=== PATIENT | female | born 1985 | race Caucasian/White ===

== ENCOUNTER 2023-12-18 10:04 | Emergency (ER) | payer OTHER ==
[~2023-12-18] VITALS: Ht 152.4 cm; Wt 114.0 kg
[~2023-12-18 10:04] MED LIST: BUSP30TA2 PO; CLON0.5T23 PO; DOXE150C PO; SERT-112 PO
[2023-12-18 10:12] VITALS: O2SAT 99
[2023-12-18] MEDS: LEVETIRACETAM 500MG PREMIX 100 ML IV ONE (10:36)
[2023-12-18 10:53] LABS: BASOPHILS % 0.7 % (0.0-2.0); EOSINOPHILS % 2.4 % (0.0-5.0); HEMATOCRIT. 39.2 % (36.0-48.0); LYMPHOCYTES % 21.7 % (20.0-50.0); MEAN CORPUSCULAR HEMOGLOBIN 29.5 pg (28.0-32.0); MEAN CORPUSCULAR HGB CONC 33.3 g/dL (31.0-37.0); MEAN CORPUSCULAR VOLUME 88.6 fL (81.0-99.0); MONOCYTES % 9.3 % (2.0-8.0); NEUTROPHILS % 65.9 % (40.0-76.0); PLATELET 226 x1000/uL (130-400); RED BLOOD CELL COUNT 4.42 mill/uL (4.2-5.4); RED CELL DISTRIBUTION WIDTH 12.9 % (11.6-14.6); WHITE BLOOD COUNT 4.7 x1000/uL (4.5-11.0)
[2023-12-18 11:05] LABS: CHLORIDE 108 mEq/L (98-107); POTASSIUM 4.1 mEq/L (3.5-5.1); SODIUM 141 mEq/L (136-145)
[2023-12-18 11:06] LABS: CALCIUM 9.4 mg/dL (8.7-10.4); CARBON DIOXIDE 23 mEq/L (21-32)
[2023-12-18 11:11] LABS: CREATININE 0.7 mg/dL (0.6-1.0); GLUCOSE 132 mg/dL (70-105); UREA NITROGEN BLOOD 16 mg/dL (9-23)
[2023-12-18] MEDS ORDERED: KEPP500 MT (12:37)
[2023-12-18 12:43] LABS: CLARITY URINE CLOUDY (CLEAR); COLOR URINE YELLOW (YELLOW); GLUCOSE URINE NEGATIVE (NEGATIVE); KETONES URINE NEGATIVE (NEGATIVE); LEUKOCYTE ESTERASE URINE 3+ (NEGATIVE); NITRITE URINE POSITIVE (NEGATIVE); OCCULT BLOOD URINE NEGATIVE (NEGATIVE); PROTEIN URINE TRACE (NEGATIVE); UROBILINOGEN URINE 0.2 E.U./dL (0.2-1.0)
[2023-12-18 12:48] VITALS: BP 125/86; PULSE 90; RESP 14; TEMP 97.5
[2023-12-18 12:57] LABS: BACTERIA URINE 4+; WBC URINE 25-50 /hpf (0-2); YEAST URINE NONE SEEN
[2023-12-18 12:58] LABS: SQUAMOUS EPITHELIAL CELL URINE RARE /lpf (RARE/1+)
== END 2023-12-18 12:59 | disposition home or self-care (01) ==
LOC: ER 10:04 → CANBEDREQ 12-19 02:38
DX: R56.9 Unspecified convulsions (principal); I10 Essential (primary) hypertension
CPT/HCPCS: 99283; 80048; 81003; 85025; 87086; 36415; J1953

== ENCOUNTER 2024-07-08 14:12 | Inpatient (IN) | payer BC, MEDICAID, OTHER ==
[~2024-07-08] VITALS: Ht 165.1 cm; Wt 114.3 kg
[~2024-07-08 14:12] MED LIST changes: +KEPP500 MT
[2024-07-08 14:15] VITALS: O2SAT 96
[2024-07-08] MEDS: LEVETIRACETAM 1000MG PREMIX 100 ML IV ONE (15:16)
[2024-07-08 16:17] LABS: HEMATOCRIT. 37.3 % (36.0-48.0); HEMOGLOBIN. 13.2 g/dL (12.0-16.0); MEAN CORPUSCULAR HEMOGLOBIN 30.4 pg (28.0-32.0); MEAN CORPUSCULAR HGB CONC 35.3 g/dL (31.0-37.0); MEAN CORPUSCULAR VOLUME 86.1 fL (81.0-99.0); PLATELET 159 x1000/uL (130-400); RED BLOOD CELL COUNT 4.33 mill/uL (4.2-5.4); RED CELL DISTRIBUTION WIDTH 12.9 % (11.6-14.6); WHITE BLOOD COUNT 7.3 x1000/uL (4.5-11.0)
[2024-07-08 16:21] LABS: DIFFERENTIAL COMMENT 1
[2024-07-08 16:36] LABS: CHLORIDE 99 mEq/L (98-107); SODIUM 135 mEq/L (136-145)
[2024-07-08 16:37] LABS: CALCIUM 9.4 mg/dL (8.7-10.4); CARBON DIOXIDE 26 mEq/L (21-32)
[2024-07-08 16:42] LABS: CREATININE 0.7 mg/dL (0.6-1.0); GLUCOSE 166 mg/dL (70-105); UREA NITROGEN BLOOD 9 mg/dL (9-23)
[2024-07-08 16:53] LABS: POTASSIUM 2.5 mEq/L (3.5-5.1)
[2024-07-08 17:53] LABS: PLATELET ESTIMATE NORMAL
[2024-07-08] MEDS: POTASSIUM CHLORIDE 20MEQ TABLET SR PO ONE (18:09)
[2024-07-08 20:00] VITALS: BP 146/74; PULSE 95; RESP 18; TEMP 37.11408; O2SAT 97
[2024-07-08] MEDS ORDERED: LORAZEPAM 2MG/ML INJ IV PRN (23:00)
[2024-07-08] MEDS: DOXEPIN HCL 25MG CAPSULE PO SCH (23:40)
[2024-07-08] MEDS: POTASSIUM CHLORIDE 20MEQ TABLET SR PO NR (23:42)
[2024-07-09] VITALS: BP 128/55; PULSE 93; RESP 18; TEMP 36.72516; O2SAT 98
[2024-07-09 00:12] LABS: BASOPHILS % 0.2 % (0.0-2.0); HEMATOCRIT. 39.1 % (36.0-48.0); HEMOGLOBIN. 13.5 g/dL (12.0-16.0); LYMPHOCYTES % 8.2 % (20.0-50.0); MEAN CORPUSCULAR HEMOGLOBIN 29.9 pg (28.0-32.0); MEAN CORPUSCULAR HGB CONC 34.4 g/dL (31.0-37.0); MEAN CORPUSCULAR VOLUME 86.9 fL (81.0-99.0); MEAN PLATELET VOLUME 9.9 fl (7.4-10.4); MONOCYTES % 11.6 % (2.0-8.0); PLATELET 165 x1000/uL (130-400); RED CELL DISTRIBUTION WIDTH 13.1 % (11.6-14.6); WHITE BLOOD COUNT 6.3 x1000/uL (4.5-11.0)
[2024-07-09 00:16] LABS: CALCIUM 9.6 mg/dL (8.7-10.4); CARBON DIOXIDE 28 mEq/L (21-32); CHLORIDE 100 mEq/L (98-107); SODIUM 138 mEq/L (136-145)
[2024-07-09 00:21] LABS: CREATININE 0.7 mg/dL (0.6-1.0); GLUCOSE 157 mg/dL (70-105); UREA NITROGEN BLOOD 10 mg/dL (9-23)
[2024-07-09 01:08] LABS: POTASSIUM 2.7 mEq/L (3.5-5.1)
[2024-07-09] MEDS: KCL 20MEQ/100ML PREMIX 100 ML IV SCH (01:35)
[2024-07-09 04:00] VITALS: BP 157/121; PULSE 92; RESP 16; TEMP 36.28068; O2SAT 100
[2024-07-09 08:00] VITALS: BP 127/93; PULSE 87; RESP 20; TEMP 37.05852; O2SAT 96
[2024-07-09] MEDS: LEVETIRACETAM 500MG TABLET PO SCH (08:56)
[2024-07-09] MEDS: CLONAZEPAM 0.5MG TABLET PO SCH (08:57)
[2024-07-09] MEDS: BUSPIRONE HCL 10MG TABLET PO SCH (08:57)
[2024-07-09] MEDS: SERTRALINE HCL 100MG TABLET PO SCH (08:57)
[2024-07-09] MEDS: POTASSIUM CHLORIDE 20MEQ TABLET SR PO NR (11:26)
[2024-07-09] MEDS: ACETAMINOPHEN 325MG TABLET PO PRN (11:27)
[2024-07-09 12:00] VITALS: BP 143/75; PULSE 99; RESP 18; TEMP 38.3364; O2SAT 96
[2024-07-09 14:13] LABS: CLARITY URINE CLEAR (CLEAR); COLOR URINE YELLOW (YELLOW); GLUCOSE URINE NEGATIVE (NEGATIVE); KETONES URINE NEGATIVE (NEGATIVE); LEUKOCYTE ESTERASE URINE 2+ (NEGATIVE); NITRITE URINE POSITIVE (NEGATIVE); OCCULT BLOOD URINE TRACE (NEGATIVE); PROTEIN URINE 1+ (NEGATIVE); SPECIFIC GRAVITY URINE 1.014 (1.005-1.030)
[2024-07-09] MEDS: ENOXAPARIN 30MG/0.3ML SYR SUBCUT SCH (14:17)
[2024-07-09 14:20] LABS: POTASSIUM 3.3 mEq/L (3.5-5.1)
[2024-07-09 14:40] LABS: SQUAMOUS EPITHELIAL CELL URINE 3+ /lpf (RARE/1+)
[2024-07-09 14:41] LABS: BACTERIA URINE 4+
[2024-07-09 14:45] LABS: RBC URINE 0-2 /hpf (0-2)
[2024-07-09] MEDS: CEFTRIAXONE 1GM/50ML 50 ML IV SCH (15:18)
[2024-07-09 16:00] VITALS: BP_SYST 114; BP_SYST 133; BP_DIAS 106; BP_DIAS 95; PULSE 80; PULSE 98; RESP 20; TEMP 36.3918; O2SAT 80; O2SAT 99
[2024-07-09 20:00] VITALS: BP 101/59; PULSE 95; RESP 18; TEMP 36.6696; O2SAT 96
[2024-07-10 00:15] VITALS: BP_SYST 132; BP_DIAS 77; BP_DIAS 97; PULSE 88; RESP 20; TEMP 36.16956; TEMP 36.1956; O2SAT 93
[2024-07-10 04:00] VITALS: BP 114/74; PULSE 81; RESP 19; TEMP 37.16964; O2SAT 94
[2024-07-10 08:00] VITALS: BP 137/89; PULSE 86; RESP 18; TEMP 37.00296; O2SAT 100
[2024-07-10 12:00] VITALS: BP 127/86; PULSE 98; RESP 20; TEMP 36.33624; O2SAT 100
[2024-07-10 13:35] LABS: CHLORIDE 99 mEq/L (98-107); POTASSIUM 3.3 mEq/L (3.5-5.1); SODIUM 134 mEq/L (136-145)
[2024-07-10 13:36] LABS: CALCIUM 9.3 mg/dL (8.7-10.4); CARBON DIOXIDE 23 mEq/L (21-32)
[2024-07-10 13:41] LABS: CREATININE 0.7 mg/dL (0.6-1.0); GLUCOSE 158 mg/dL (70-105); UREA NITROGEN BLOOD 13 mg/dL (9-23)
[2024-07-10 16:00] VITALS: BP 128/89; PULSE 91; RESP 18; TEMP 36.89184; O2SAT 97
[2024-07-10] MEDS: POTASSIUM CHLORIDE 20MEQ TABLET SR PO NR (17:46)
[2024-07-10 20:00] VITALS: BP 147/86; PULSE 98; RESP 20; TEMP 37.7808; O2SAT 94
[2024-07-11] VITALS: BP 117/81; PULSE 85; RESP 20; TEMP 37.39188; O2SAT 93
[2024-07-11 04:00] VITALS: BP 126/75; PULSE 92; RESP 20; TEMP 37.05852; O2SAT 95
[2024-07-11 08:00] VITALS: BP 111/82; PULSE 98; RESP 17; TEMP 36.3918; O2SAT 96
[2024-07-11 12:00] VITALS: BP 114/84; PULSE 98; RESP 18; TEMP 36.89184; O2SAT 96
[2024-07-11 16:00] VITALS: BP 119/71; PULSE 84; RESP 17; TEMP 37.28076; O2SAT 95
[2024-07-11 20:00] VITALS: BP 123/80; PULSE 107; RESP 18; TEMP 36.50292; O2SAT 95
[2024-07-12] VITALS: BP 110/64; PULSE 117; RESP 18; TEMP 36.61404; O2SAT 93
[2024-07-12 04:00] VITALS: BP 114/65; PULSE 109; RESP 20; TEMP 35.89176; O2SAT 94
[2024-07-12 08:00] VITALS: BP 112/75; PULSE 89; RESP 20; TEMP 36.78072; O2SAT 96
[2024-07-12 12:00] VITALS: BP 114/66; PULSE 98; RESP 20; TEMP 37.00296; O2SAT 98
[2024-07-12] MEDS ORDERED: LEVO-65 MT (12:53)
[2024-07-12 16:00] VITALS: BP 114/62; PULSE 100; RESP 20; TEMP 36.50292; O2SAT 99
[2024-07-12 20:00] VITALS: BP 121/93; PULSE 93; RESP 18; TEMP 36.78072; O2SAT 95
[2024-07-13] VITALS: BP 128/87; PULSE 91; RESP 20; TEMP 36.55848; O2SAT 97
[2024-07-13 04:00] VITALS: BP 115/81; PULSE 88; RESP 20; TEMP 36.55848; O2SAT 97
[2024-07-13 08:00] VITALS: BP 133/78; PULSE 89; RESP 22; TEMP 36.22512; O2SAT 99
[2024-07-13 12:00] VITALS: BP 139/81; PULSE 87; TEMP 36.16956; O2SAT 20
[2024-07-13 16:00] VITALS: BP 125/81; PULSE 87; RESP 18; TEMP 36.16956; O2SAT 99
[2024-07-13 20:00] VITALS: BP_SYST 133; BP_SYST 141; BP_DIAS 74; BP_DIAS 80; PULSE 91; RESP 18; RESP 20; TEMP 36.6696; O2SAT 100; O2SAT 95
[2024-07-13] MEDS: CLONAZEPAM 0.5MG TABLET NG SCH (21:12)
[2024-07-14] VITALS: BP 122/83; PULSE 74; RESP 20; TEMP 36.3918; O2SAT 97
[2024-07-14 04:00] VITALS: BP 125/85; PULSE 60; RESP 20; TEMP 36.50292; O2SAT 95
[2024-07-14 08:00] VITALS: BP_SYST 126; BP_SYST 130; BP_DIAS 85; BP_DIAS 87; PULSE 93; PULSE 98; RESP 18; RESP 20; TEMP 36.114; O2SAT 100
[2024-07-14 12:00] VITALS: BP 126/85; PULSE 98; RESP 18; TEMP 36.114; O2SAT 100
[2024-07-14 16:00] VITALS: BP 138/75; PULSE 89; RESP 20; TEMP 36.61404; O2SAT 99
[2024-07-14 20:00] VITALS: BP 113/79; PULSE 92; RESP 18; TEMP 36.50292; O2SAT 98
[2024-07-14] MEDS: CLONAZEPAM 0.5MG TABLET NG SCH (21:14)
[2024-07-15] VITALS: BP 130/85; PULSE 85; RESP 20; TEMP 36.3918; O2SAT 95
[2024-07-15 04:00] VITALS: BP 142/91; PULSE 79; RESP 19; TEMP 36.55848; O2SAT 96
[2024-07-15 08:00] VITALS: BP 139/94; PULSE 83; RESP 20; TEMP 36.114; O2SAT 99
[2024-07-15 12:00] VITALS: BP 119/81; PULSE 85; RESP 20; TEMP 36.16956; O2SAT 97
[2024-07-15 16:00] VITALS: BP 108/65; PULSE 95; RESP 18; TEMP 36.28068; O2SAT 98
[2024-07-15 20:00] VITALS: BP 142/88; PULSE 64; RESP 20; TEMP 36.72516; O2SAT 91
[2024-07-15] MEDS: CLONAZEPAM 0.5MG TABLET PO SCH (21:15)
[2024-07-16] VITALS: BP 119/77; PULSE 77; RESP 20; TEMP 36.28068; O2SAT 95
[2024-07-16 04:00] VITALS: BP 116/73; PULSE 83; RESP 20; TEMP 36.16956; O2SAT 97
[2024-07-16 08:00] VITALS: BP 115/79; PULSE 67; RESP 17; TEMP 36.50292; O2SAT 98
[2024-07-16 12:00] VITALS: BP 133/76; PULSE 76; RESP 17; TEMP 37.11408; O2SAT 97
[2024-07-16] MEDS: BUSPIRONE HCL 10MG TABLET PO SCH (12:52)
[2024-07-16 16:00] VITALS: BP 116/77; PULSE 98; RESP 18; TEMP 36.16956; O2SAT 98
[2024-07-16 20:00] VITALS: BP 123/80; PULSE 99; RESP 19; TEMP 36.78072; O2SAT 96
[2024-07-17] VITALS: BP 146/72; PULSE 85; RESP 19; TEMP 36.50292; O2SAT 96
[2024-07-17 04:00] VITALS: BP 109/82; PULSE 94; RESP 19; TEMP 36.22512; O2SAT 94
[2024-07-17 08:00] VITALS: BP 156/96; PULSE 65; RESP 20; TEMP 36.55848; O2SAT 97
[2024-07-17 12:00] VITALS: BP 125/68; PULSE 93; RESP 19; TEMP 36.55848; O2SAT 96
[2024-07-17 16:00] VITALS: BP 113/79; PULSE 81; RESP 18; TEMP 36.55848; O2SAT 97
[2024-07-17 20:00] VITALS: BP 119/81; PULSE 99; RESP 20; TEMP 36.28068; O2SAT 100
[2024-07-18] VITALS: BP 122/78; PULSE 96; RESP 20; TEMP 36.3918; O2SAT 99
[2024-07-18 04:00] VITALS: BP 123/88; PULSE 74; RESP 20; TEMP 36.83628; O2SAT 96
[2024-07-18 08:00] VITALS: BP 136/87; PULSE 83; RESP 18; TEMP 36.61404; O2SAT 100
[2024-07-18 12:00] VITALS: BP 129/79; PULSE 80; RESP 20; TEMP 36.6696; O2SAT 95
[2024-07-18 16:00] VITALS: BP 112/75; PULSE 105; RESP 18; TEMP 36.72516; O2SAT 98
[2024-07-18 20:00] VITALS: BP 126/99; PULSE 97; RESP 16; TEMP 36.28068; O2SAT 97
[2024-07-19] VITALS: BP 127/83; PULSE 84; RESP 19; TEMP 36.28068; O2SAT 95
[2024-07-19 04:00] VITALS: BP 145/82; PULSE 74; RESP 19; TEMP 36.16956; O2SAT 100
[2024-07-19 08:00] VITALS: BP 131/94; PULSE 66; RESP 18; TEMP 36.89184; O2SAT 100
[2024-07-19 12:00] VITALS: BP 129/84; PULSE 71; RESP 20; TEMP 36.6696; O2SAT 98
[2024-07-19 16:00] VITALS: BP 128/79; PULSE 74; RESP 20; TEMP 37.05852; O2SAT 98
[2024-07-19 20:00] VITALS: BP 135/88; PULSE 90; RESP 20; TEMP 36.50292; O2SAT 98
[2024-07-20] VITALS: BP 127/86; PULSE 86; RESP 18; TEMP 36.44736; O2SAT 100
[2024-07-20 04:00] VITALS: BP 134/87; PULSE 71; RESP 20; TEMP 36.6696; O2SAT 98
[2024-07-20 08:00] VITALS: BP 128/84; RESP 18; TEMP 37.00296; O2SAT 96
[2024-07-20 11:54] VITALS: BP 113/85; PULSE 90; RESP 18; TEMP 36.78072; O2SAT 95
[2024-07-20] MEDS ORDERED: IBUP-2029 PO (13:44)
[2024-07-20 16:00] VITALS: BP 121/81; PULSE 92; RESP 18; TEMP 36.83628; O2SAT 96
[2024-07-20 20:00] VITALS: BP 113/68; PULSE 83; RESP 18; TEMP 36.89184; O2SAT 97
[2024-07-20] MEDS: ENOXAPARIN 40MG/0.4ML SYR SUBCUT SCH (21:14)
[2024-07-21] VITALS: BP 132/89; PULSE 82; RESP 19; TEMP 36.44736; O2SAT 100
[2024-07-21 04:00] VITALS: BP 128/82; PULSE 89; RESP 20; TEMP 36.3918; O2SAT 99
[2024-07-21 08:00] VITALS: BP 112/80; PULSE 87; RESP 18; TEMP 37.2252; O2SAT 95
[2024-07-21] MEDS: GADOTERATE MEGLUMINE 5 MMOL/10 ML VIAL IV ONE (09:15)
[2024-07-21 16:00] VITALS: BP 109/69; PULSE 81; RESP 18; TEMP 36.72516; O2SAT 96
[2024-07-21 20:00] VITALS: BP 115/91; PULSE 78; RESP 18; TEMP 36.61404; O2SAT 98
[2024-07-22] VITALS: BP 110/74; PULSE 79; RESP 18; TEMP 36.114; O2SAT 95
[2024-07-22 04:00] VITALS: BP 131/71; PULSE 71; RESP 18; TEMP 36.28068; O2SAT 95
[2024-07-22 08:00] VITALS: BP 162/78; PULSE 96; RESP 18; TEMP 36.50292; O2SAT 96
[2024-07-22 12:00] VITALS: BP 124/84; PULSE 93; RESP 19; TEMP 36.6696; O2SAT 96
[2024-07-22 16:00] VITALS: BP 122/76; PULSE 90; RESP 19; TEMP 36.78072; O2SAT 98
[2024-07-22 20:00] VITALS: BP 140/81; PULSE 95; RESP 18; TEMP 36.61404; O2SAT 98
[2024-07-22] MEDS ORDERED: LORAZEPAM 2MG/ML INJ IV PRN (23:15)
[2024-07-23] VITALS: BP 122/66; PULSE 78; RESP 18; TEMP 36.05844; O2SAT 99
[2024-07-23 04:00] VITALS: BP 120/63; PULSE 80; RESP 18; TEMP 36.114; O2SAT 97
[2024-07-23 08:00] VITALS: BP 122/79; PULSE 83; RESP 19; TEMP 36.22512; O2SAT 97
[2024-07-23 12:00] VITALS: BP 146/66; PULSE 103; RESP 18; TEMP 36.6696; O2SAT 98
[2024-07-23] MEDS ORDERED: MIRA25TA5 PO (14:16)
[2024-07-23] MEDS ORDERED: QUET50TA23 PO (14:16)
[2024-07-23] MEDS ORDERED: HYDR-3735 PO (14:16)
[2024-07-23] MEDS ORDERED: CLON0.5T4 PO (14:17)
[2024-07-23] MEDS: LOPERAMIDE HCL 2MG CAPSULE PO PRN (14:27)
[2024-07-23] MEDS: LORAZEPAM 2MG/ML INJ IM PRN (14:32)
[2024-07-23 16:00] VITALS: BP 128/72; PULSE 93; RESP 19; TEMP 36.72516; O2SAT 99
[2024-07-23 20:00] VITALS: BP 126/73; PULSE 107; RESP 18; TEMP 36.33624; O2SAT 95
[2024-07-23] MEDS: ENOXAPARIN 30MG/0.3ML SYR SUBCUT SCH (21:00)
[2024-07-24] VITALS: BP 111/77; PULSE 91; RESP 18; TEMP 36.61404; O2SAT 96
[2024-07-24 04:00] VITALS: BP 113/82; PULSE 70; RESP 18; TEMP 36.28068; O2SAT 92
[2024-07-24 08:00] VITALS: BP 136/72; PULSE 78; RESP 18; TEMP 36.44736; O2SAT 78; O2SAT 96
[2024-07-24 12:00] VITALS: BP 109/79; PULSE 98; RESP 18; TEMP 36.28068; O2SAT 78; O2SAT 96
[2024-07-24 16:00] VITALS: BP 103/79; PULSE 96; RESP 18; TEMP 36.05844; O2SAT 97
[2024-07-24] MEDS: BUSPIRONE HCL 10MG TABLET PO SCH (17:22)
[2024-07-24 20:00] VITALS: BP 121/67; PULSE 94; RESP 18; TEMP 36.3918; O2SAT 95
[2024-07-25] VITALS: BP 93/58; PULSE 50; RESP 18; TEMP 36.3918; O2SAT 98
[2024-07-25 04:00] VITALS: BP 117/72; PULSE 86; RESP 18; TEMP 36.3918; O2SAT 97
[2024-07-25 08:00] VITALS: BP 124/75; PULSE 93; RESP 19; TEMP 36.72516; O2SAT 100
[2024-07-25 12:00] VITALS: BP 121/69; PULSE 88; RESP 19; TEMP 36.55848; O2SAT 99
[2024-07-25] MEDS: ONDANSETRON HCL 4MG TABLET PO PRN (15:21)
[2024-07-25 16:00] VITALS: BP 119/67; PULSE 80; RESP 19; TEMP 36.83628; O2SAT 99
[2024-07-25 22:59] VITALS: BP 113/76; PULSE 72; RESP 18; TEMP 36.83628; O2SAT 93
[2024-07-26 07:12] VITALS: BP 110/60; PULSE 70; RESP 20; TEMP 36.6696; O2SAT 97
[2024-07-26] MEDS: PANTOPRAZOLE 40MG DR TABLET PO SCH (08:25)
[2024-07-26 12:00] VITALS: BP 115/59; PULSE 74; RESP 20; TEMP 36.61404; O2SAT 98
[2024-07-26 16:00] VITALS: BP 118/61; PULSE 76; RESP 18; TEMP 36.72516; O2SAT 99
[2024-07-26 20:00] VITALS: BP 108/80; PULSE 94; RESP 18; TEMP 36.33624; O2SAT 94
[2024-07-27] VITALS: BP 130/82; PULSE 94; RESP 18; TEMP 35.94732; O2SAT 96
[2024-07-27 04:00] VITALS: BP 120/90; PULSE 88; RESP 18; TEMP 36.22512; O2SAT 99
[2024-07-27 08:00] VITALS: BP 126/86; PULSE 86; RESP 16; TEMP 36.16956; O2SAT 99
[2024-07-27 12:00] VITALS: BP 134/78; PULSE 84; RESP 18; TEMP 36.83628; O2SAT 97
[2024-07-27 16:00] VITALS: BP 129/77; PULSE 82; RESP 18; TEMP 36.83628; O2SAT 99
[2024-07-27 21:28] VITALS: BP 138/81; PULSE 102; RESP 20; TEMP 36.22512; O2SAT 97
[2024-07-28] VITALS: BP 125/89; PULSE 81; RESP 20; TEMP 36.22512; O2SAT 95
[2024-07-28 04:00] VITALS: BP 136/95; PULSE 72; RESP 20; TEMP 36.28068; O2SAT 94
[2024-07-28 08:00] VITALS: BP 132/87; PULSE 90; RESP 18; TEMP 35.8362
[2024-07-28] MEDS: MULTIVITAMINS,THER W-MINERALS TABLET PO SCH (09:12)
[2024-07-28 12:00] VITALS: BP 110/80; PULSE 92; RESP 20; TEMP 36.3918; O2SAT 95
[2024-07-28 16:00] VITALS: BP 113/64; PULSE 92; RESP 18; TEMP 36.3918; O2SAT 95
[2024-07-28 20:00] VITALS: BP 138/86; PULSE 110; RESP 18; TEMP 36.61404; O2SAT 96
[2024-07-29] VITALS: BP 132/88; PULSE 88; RESP 18; TEMP 36.22512; O2SAT 97
[2024-07-29 04:00] VITALS: BP 131/84; PULSE 82; RESP 18; TEMP 36.3918; O2SAT 98
[2024-07-29 08:00] VITALS: BP 130/78; PULSE 101; RESP 19; TEMP 36.72516; O2SAT 97
[2024-07-29 12:00] VITALS: BP 126/72; PULSE 98; RESP 19; TEMP 36.55848; O2SAT 99
[2024-07-29 13:39] LABS: BASOPHILS % 0.8 % (0.0-2.0); EOSINOPHILS % 3.3 % (0.0-5.0); HEMATOCRIT. 43.3 % (36.0-48.0); HEMOGLOBIN. 14.3 g/dL (12.0-16.0); LYMPHOCYTES % 37.4 % (20.0-50.0); MEAN CORPUSCULAR HEMOGLOBIN 29.1 pg (28.0-32.0); MEAN CORPUSCULAR VOLUME 88.4 fL (81.0-99.0); MEAN PLATELET VOLUME 9.8 fl (7.4-10.4); NEUTROPHILS % 48.5 % (40.0-76.0); PLATELET 209 x1000/uL (130-400); WHITE BLOOD COUNT 4.6 x1000/uL (4.5-11.0)
[2024-07-29 13:58] LABS: CHLORIDE 108 mEq/L (98-107); POTASSIUM 3.7 mEq/L (3.5-5.1); SODIUM 139 mEq/L (136-145)
[2024-07-29 13:59] LABS: CARBON DIOXIDE 25 mEq/L (21-32)
[2024-07-29 14:00] LABS: CALCIUM 9.4 mg/dL (8.7-10.4)
[2024-07-29 14:04] LABS: CREATININE 0.8 mg/dL (0.6-1.0); GLUCOSE 138 mg/dL (70-105); UREA NITROGEN BLOOD 15 mg/dL (9-23)
[2024-07-29 16:00] VITALS: BP 122/81; PULSE 99; RESP 19; TEMP 36.6696; O2SAT 97
[2024-07-29 20:00] VITALS: BP 130/68; PULSE 101; RESP 18; TEMP 36.72516; O2SAT 95
[2024-07-30] VITALS: BP 110/78; PULSE 86; RESP 18; TEMP 36.72516; O2SAT 98
[2024-07-30 04:00] VITALS: BP 110/81; PULSE 79; RESP 16; TEMP 36.6696; O2SAT 97
[2024-07-30 08:00] VITALS: BP 128/91; PULSE 60; RESP 18; TEMP 36.61404; O2SAT 95
[2024-07-30 12:00] VITALS: BP 129/79; PULSE 96; RESP 18; TEMP 36.72516; O2SAT 95
[2024-07-30] MEDS: BUSPIRONE HCL 10MG TABLET PO SCH (15:08)
[2024-07-30 16:00] VITALS: BP 121/85; PULSE 110; RESP 18; TEMP 36.61404; O2SAT 95
[2024-07-30 20:00] VITALS: BP 124/75; PULSE 86; RESP 18; TEMP 36.72516; O2SAT 99
[2024-07-31] VITALS: BP 119/79; PULSE 84; RESP 18; TEMP 36.89184; O2SAT 99
[2024-07-31 04:00] VITALS: BP 122/74; PULSE 80; RESP 18; TEMP 36.78072; O2SAT 99
[2024-07-31 08:00] VITALS: BP 127/79; PULSE 82; RESP 19; TEMP 36.78072; O2SAT 99
[2024-07-31 12:00] VITALS: BP 128/80; PULSE 94; RESP 19; TEMP 36.44736; O2SAT 96
[2024-07-31 16:00] VITALS: BP 120/71; PULSE 90; RESP 19; TEMP 36.6696; O2SAT 99
[2024-07-31 20:00] VITALS: BP 122/81; PULSE 95; RESP 19; TEMP 37.05852; O2SAT 96
[2024-08-01 08:00] VITALS: BP 138/70; PULSE 78; RESP 18; TEMP 36.55848; O2SAT 98
[2024-08-01 12:00] VITALS: BP 121/76; PULSE 106; RESP 20; TEMP 36.72516; O2SAT 99
[2024-08-01 16:00] VITALS: BP 120/57; PULSE 114; RESP 18; TEMP 36.72516; O2SAT 95
[2024-08-01 20:00] VITALS: BP 130/65; PULSE 105; RESP 19; TEMP 36.50292; O2SAT 95
[2024-08-02 04:00] VITALS: BP 124/63; PULSE 95; RESP 20; TEMP 36.6696; O2SAT 95
[2024-08-02 08:00] VITALS: BP 114/69; PULSE 88; RESP 18; TEMP 36.4; O2SAT 96
[2024-08-02 12:00] VITALS: BP 97/66; PULSE 92; RESP 18; TEMP 36.4; O2SAT 93
[2024-08-02 16:00] VITALS: BP 119/65; PULSE 95; RESP 17; TEMP 36.7; O2SAT 96
[2024-08-02 20:00] VITALS: BP 112/76; PULSE 95; RESP 18; TEMP 36.6; O2SAT 98
[2024-08-03 04:00] VITALS: BP 108/68; PULSE 97; RESP 18; TEMP 36.7; O2SAT 97
[2024-08-03 08:00] VITALS: BP 112/95; PULSE 63; RESP 20; TEMP 36.4; O2SAT 96
[2024-08-03 12:00] VITALS: BP 124/67; PULSE 97; RESP 19; TEMP 36.6; O2SAT 97
[2024-08-03 16:00] VITALS: BP 126/82; PULSE 95; RESP 20; TEMP 36.5; O2SAT 95
[2024-08-03 20:00] VITALS: BP 165/90; PULSE 86; RESP 18; TEMP 36.4; O2SAT 93
[2024-08-04] VITALS (7 sets, daily range): BP systolic 102–128; BP diastolic 67–91; PULSE 85–95; RESP 18–20; TEMP 35.1–37.5; O2SAT 88–100
[2024-08-04] MEDS: BUSPIRONE HCL 10MG TABLET PO SCH (18:30)
[2024-08-05] VITALS: BP 125/68; PULSE 86; RESP 18; TEMP 36.4; O2SAT 92
[2024-08-05 04:00] VITALS: BP 106/70; PULSE 86; RESP 18; TEMP 36.2; O2SAT 96
[2024-08-05 08:00] VITALS: BP 113/77; PULSE 84; RESP 18; TEMP 36.3; O2SAT 98
[2024-08-05 12:00] VITALS: BP 115/66; PULSE 92; RESP 18; TEMP 36.3; O2SAT 96
[2024-08-05 16:00] VITALS: BP 109/96; PULSE 96; RESP 18; TEMP 36.2; O2SAT 96
[2024-08-05 20:00] VITALS: BP 112/78; PULSE 87; RESP 18; TEMP 36.6; O2SAT 97
[2024-08-06] VITALS: BP 125/76; PULSE 87; RESP 19; TEMP 36.3; O2SAT 96
[2024-08-06 04:00] VITALS: BP 127/78; PULSE 86; RESP 18; TEMP 36.3; O2SAT 92
[2024-08-06 08:00] VITALS: BP 108/83; PULSE 92; RESP 17; TEMP 36.3; O2SAT 97
[2024-08-06 12:00] VITALS: BP 109/79; PULSE 89; RESP 18; TEMP 36.3; O2SAT 98
[2024-08-06 16:00] VITALS: BP 111/77; PULSE 90; RESP 18; TEMP 36.3; O2SAT 95
[2024-08-06 20:00] VITALS: BP 105/55; PULSE 114; RESP 19; TEMP 36.2; O2SAT 96
[2024-08-07] VITALS: BP 125/94; PULSE 80; RESP 19; TEMP 36.4; O2SAT 98
[2024-08-07 04:00] VITALS: BP 109/54; PULSE 78; RESP 19; TEMP 36.4; O2SAT 100
[2024-08-07 08:00] VITALS: BP 118/68; PULSE 83; RESP 16; TEMP 35.6; O2SAT 100
[2024-08-07 12:00] VITALS: BP 111/70; PULSE 97; RESP 20; TEMP 38.1; O2SAT 97
[2024-08-07 16:00] VITALS: BP 113/60; PULSE 78; RESP 18; TEMP 37.3; O2SAT 99
[2024-08-07 20:00] VITALS: BP 114/79; PULSE 90; RESP 19; TEMP 37.8; O2SAT 97
[2024-08-08] VITALS (7 sets, daily range): BP systolic 115–137; BP diastolic 64–88; PULSE 91–129; RESP 18–20; TEMP 36.3–37; O2SAT 95–98
[2024-08-08] MEDS: LEVETIRACETAM 500MG TABLET PO SCH (08:31)
[2024-08-08] MEDS: LORAZEPAM 2MG/ML INJ IV PRN (08:31)
[2024-08-09] VITALS: BP 121/56; PULSE 82; RESP 19; TEMP 36.4; O2SAT 98
[2024-08-09 04:00] VITALS: BP 108/76; PULSE 69; RESP 20; TEMP 36.3; O2SAT 98
[2024-08-09 08:00] VITALS: BP 112/68; PULSE 71; RESP 20; TEMP 36.7; O2SAT 99
[2024-08-09 20:00] VITALS: BP 140/63; PULSE 87; RESP 19; TEMP 36.2; O2SAT 96
[2024-08-10] VITALS: BP 126/64; PULSE 79; RESP 19; TEMP 36.1; O2SAT 97
[2024-08-10 04:00] VITALS: BP 130/85; PULSE 70; RESP 19; TEMP 36.2; O2SAT 97
[2024-08-10] MEDS: BUSPIRONE HCL 10MG TABLET PO SCH (08:29)
[2024-08-10 12:00] VITALS: BP 144/83; PULSE 101; RESP 19; TEMP 36.7; O2SAT 99
[2024-08-10 16:00] VITALS: BP 139/76; PULSE 98; RESP 18; TEMP 36.4; O2SAT 98
[2024-08-10 20:00] VITALS: BP 135/84; PULSE 75; RESP 18; TEMP 36.4; O2SAT 98
[2024-08-11] VITALS: BP 131/90; PULSE 84; RESP 18; TEMP 36.1; O2SAT 97
[2024-08-11 04:00] VITALS: BP 128/87; PULSE 68; RESP 18; TEMP 36.5; O2SAT 98
[2024-08-11 08:00] VITALS: BP 151/94; PULSE 83; RESP 19; TEMP 36.6; O2SAT 97
[2024-08-11 12:00] VITALS: BP 115/80; PULSE 72; RESP 20; TEMP 37.1; O2SAT 96
[2024-08-11 16:00] VITALS: BP 114/76; PULSE 97; RESP 20; TEMP 36.7; O2SAT 93
[2024-08-11 20:00] VITALS: BP 120/78; PULSE 88; RESP 20; TEMP 36.7; O2SAT 98
[2024-08-12] VITALS: BP 122/69; PULSE 75; RESP 19; TEMP 36.3; O2SAT 97
[2024-08-12 04:00] VITALS: BP 124/81; PULSE 76; RESP 19; TEMP 36.7; O2SAT 98
[2024-08-12 08:00] VITALS: BP 128/73; PULSE 95; RESP 20; TEMP 36.3; O2SAT 96
[2024-08-12 12:00] VITALS: BP 114/82; PULSE 88; RESP 20; TEMP 36.2
[2024-08-12 16:00] VITALS: BP 122/76; PULSE 93; RESP 20; TEMP 36.6; O2SAT 95
[2024-08-12 20:00] VITALS: BP 126/77; PULSE 96; RESP 18; TEMP 37
[2024-08-13] VITALS (7 sets, daily range): BP systolic 112–145; BP diastolic 0–89; PULSE 58–92; RESP 14–19; TEMP 35.6–36.9; O2SAT 96–99
[2024-08-13] MEDS: SERTRALINE HCL 100MG TABLET PO SCH (11:41)
[2024-08-14 08:00] VITALS: BP 130/91; PULSE 73; RESP 18; TEMP 36.6; O2SAT 95
[2024-08-14 12:00] VITALS: BP 121/77; PULSE 65; RESP 18; TEMP 36.6; O2SAT 95
[2024-08-14 16:00] VITALS: BP 129/77; PULSE 89; RESP 18; TEMP 36.7; O2SAT 95
[2024-08-14 20:00] VITALS: BP 148/84; PULSE 85; RESP 20; TEMP 36.5; O2SAT 100
[2024-08-15] VITALS: BP 130/86; PULSE 73; RESP 19; TEMP 36.2; O2SAT 100
[2024-08-15 04:00] VITALS: BP 127/86; PULSE 76; RESP 19; TEMP 36.4; O2SAT 98
[2024-08-15 12:00] VITALS: BP 124/73; PULSE 98; RESP 18; TEMP 36.7; O2SAT 98
[2024-08-15] MEDS: BUSPIRONE HCL 10MG TABLET PO SCH (14:30)
[2024-08-15 16:00] VITALS: BP 122/69; PULSE 94; RESP 19; TEMP 36.7; O2SAT 98
[2024-08-15 20:00] VITALS: BP 128/82; PULSE 86; RESP 18; TEMP 36.7; O2SAT 95
[2024-08-16] VITALS: BP 120/73; PULSE 70; RESP 19; TEMP 36.3; O2SAT 98
[2024-08-16 04:00] VITALS: BP 106/83; PULSE 73; RESP 19; TEMP 36.4; O2SAT 98
[2024-08-16 08:00] VITALS: BP 110/76; PULSE 71; RESP 19; TEMP 36.6; O2SAT 99
[2024-08-16 12:00] VITALS: BP 113/75; PULSE 73; RESP 19; TEMP 36.4; O2SAT 99
[2024-08-16 16:00] VITALS: BP 121/70; PULSE 76; RESP 19; TEMP 36.7; O2SAT 99
[2024-08-16 20:00] VITALS: BP 128/86; PULSE 70; RESP 19; TEMP 36; O2SAT 98
[2024-08-17 08:00] VITALS: BP 140/63; PULSE 87; RESP 19; TEMP 36.8; O2SAT 99
[2024-08-17 12:00] VITALS: BP 130/65; PULSE 89; RESP 19; TEMP 36.9; O2SAT 99
[2024-08-17] MEDS: BUSPIRONE HCL 5MG TABLET PO SCH (15:13)
[2024-08-17 16:00] VITALS: BP 139/78; PULSE 85; RESP 19; TEMP 37.2; O2SAT 99
[2024-08-17] MEDS: LORAZEPAM 2MG/ML INJ IV PRN (16:55)
[2024-08-17 20:00] VITALS: BP 104/69; PULSE 79; RESP 17; TEMP 36.2; O2SAT 96
[2024-08-18] VITALS: BP 106/74; PULSE 79; RESP 18; TEMP 36.6; O2SAT 97
[2024-08-18 04:00] VITALS: BP 113/70; PULSE 66; RESP 18; TEMP 36.6; O2SAT 97
[2024-08-18 08:00] VITALS: BP 119/82; PULSE 72; RESP 19; TEMP 36.2; O2SAT 100
[2024-08-18] MEDS: BUSPIRONE HCL 10MG TABLET PO SCH (10:34)
[2024-08-18 12:00] VITALS: BP 115/76; PULSE 95; RESP 20; TEMP 36.5; O2SAT 95
[2024-08-18 16:00] VITALS: BP 121/78; PULSE 96; RESP 20; TEMP 36.6
[2024-08-18 20:00] VITALS: BP 129/83; PULSE 67; RESP 18; TEMP 36.1; O2SAT 100
[2024-08-19] VITALS: BP 118/84; PULSE 75; RESP 18; TEMP 36.2; O2SAT 100
[2024-08-19 04:00] VITALS: BP 119/77; PULSE 104; RESP 20; TEMP 36.3; O2SAT 100
[2024-08-19 08:00] VITALS: BP 126/84; PULSE 62; RESP 19; TEMP 36.6; O2SAT 95
[2024-08-19 12:00] VITALS: BP 117/68; PULSE 95; RESP 18; TEMP 36.6; O2SAT 97
[2024-08-19 16:00] VITALS: BP 123/68; PULSE 81; RESP 18; TEMP 36.6; O2SAT 68
[2024-08-19 20:00] VITALS: BP 114/67; RESP 17; TEMP 36.2; O2SAT 99
[2024-08-20] VITALS: BP 114/80; PULSE 64; RESP 18; TEMP 36.3; O2SAT 96
[2024-08-20 04:00] VITALS: BP 108/81; PULSE 56; RESP 18; TEMP 36.2; O2SAT 99
[2024-08-20 08:00] VITALS: BP 116/68; PULSE 73; RESP 18; TEMP 36.1; O2SAT 97
[2024-08-20 12:00] VITALS: BP 104/55; PULSE 79; RESP 18; TEMP 36.3; O2SAT 97
[2024-08-20 16:00] VITALS: BP 117/71; PULSE 96; RESP 18; TEMP 36.3; O2SAT 97
[2024-08-20 20:00] VITALS: BP 128/88; PULSE 107; RESP 20; TEMP 36.3; O2SAT 99
[2024-08-20] MEDS ORDERED: LORAZEPAM 2MG/ML INJ IV PRN (20:00)
[2024-08-21] VITALS: BP 114/80; PULSE 83; RESP 18; TEMP 36.3; O2SAT 96
[2024-08-21 04:00] VITALS: BP 122/80; PULSE 100; RESP 18; TEMP 36.3; O2SAT 98
[2024-08-21 08:00] VITALS: BP 123/69; PULSE 75; RESP 19; TEMP 36.2; O2SAT 98
[2024-08-21 12:00] VITALS: BP 123/73; PULSE 79; RESP 19; TEMP 36.8; O2SAT 99
[2024-08-21 16:00] VITALS: BP 127/70; PULSE 82; RESP 19; TEMP 37; O2SAT 99
[2024-08-21 20:00] VITALS: BP 126/75; PULSE 85; RESP 18; TEMP 36.4; O2SAT 98
[2024-08-22] VITALS: BP 121/80; PULSE 73; RESP 18; TEMP 36.5; O2SAT 95
[2024-08-22 08:00] VITALS: BP 102/62; PULSE 83; RESP 19; TEMP 36.2
[2024-08-22 12:00] VITALS: BP 106/40; PULSE 80; RESP 20; TEMP 36.3
[2024-08-22 16:00] VITALS: BP 127/100; PULSE 75; RESP 20; TEMP 36.6; O2SAT 98
[2024-08-22 20:00] VITALS: BP 125/82; PULSE 92; RESP 19; TEMP 36.4; O2SAT 100
[2024-08-23] VITALS: BP 111/62; PULSE 89; RESP 18; TEMP 36.3; O2SAT 100
[2024-08-23 04:00] VITALS: BP 110/72; PULSE 63; RESP 19; TEMP 36.3; O2SAT 99
[2024-08-23 08:00] VITALS: BP 118/83; PULSE 67; RESP 20; TEMP 36.2
[2024-08-23 12:00] VITALS: BP 132/110; PULSE 79; RESP 20; TEMP 36.4; O2SAT 96
[2024-08-23 16:00] VITALS: BP 115/58; PULSE 74; RESP 20; TEMP 36.3; O2SAT 94
[2024-08-23 20:00] VITALS: BP 133/88; PULSE 69; RESP 18; TEMP 36.2; O2SAT 98
[2024-08-24] VITALS: BP 128/69; PULSE 67; RESP 18; TEMP 36.1; O2SAT 98
[2024-08-24 04:00] VITALS: BP 130/70; PULSE 68; RESP 18; TEMP 36.3; O2SAT 96
[2024-08-24 08:00] VITALS: BP 118/88; PULSE 83; RESP 18; TEMP 36.3
[2024-08-24 12:00] VITALS: BP 114/75; PULSE 95; TEMP 36.4; O2SAT 18
[2024-08-24 16:00] VITALS: BP 131/92; PULSE 66; RESP 18; TEMP 36.6; O2SAT 96
[2024-08-24 20:00] VITALS: BP 118/86; PULSE 103; RESP 19; TEMP 36.4; O2SAT 96
[2024-08-25] VITALS: BP 114/77; PULSE 82; RESP 18; TEMP 36.3; O2SAT 99
[2024-08-25 04:00] VITALS: BP 121/72; PULSE 65; RESP 19; TEMP 36.3; O2SAT 98
[2024-08-25 08:00] VITALS: BP 126/70; PULSE 69; RESP 19; TEMP 36.6; O2SAT 98
[2024-08-25 12:00] VITALS: BP 120/69; PULSE 72; RESP 19; TEMP 36.8; O2SAT 98
[2024-08-25 16:00] VITALS: BP 119/72; PULSE 77; RESP 19; TEMP 36.9; O2SAT 99
[2024-08-25 20:00] VITALS: BP 131/87; PULSE 76; RESP 20; TEMP 36.3; O2SAT 95
[2024-08-26] VITALS: BP 120/79; PULSE 75; RESP 19; TEMP 36.6; O2SAT 97
[2024-08-26 04:00] VITALS: BP 122/93; PULSE 83; RESP 18; TEMP 35.9; O2SAT 96
[2024-08-26 08:00] VITALS: BP 129/92; PULSE 87; RESP 19; TEMP 35.8; O2SAT 100
[2024-08-26 12:00] VITALS: BP 117/65; PULSE 82; RESP 19; TEMP 36.6; O2SAT 99
[2024-08-26 16:00] VITALS: BP 117/77; PULSE 89; RESP 20; TEMP 37.1; O2SAT 96
[2024-08-26 20:00] VITALS: BP 141/92; PULSE 91; RESP 19; TEMP 36.2; O2SAT 98
[2024-08-27] VITALS: BP 105/58; PULSE 91; RESP 18; TEMP 36.1; O2SAT 97
[2024-08-27 04:00] VITALS: BP 137/95; PULSE 74; RESP 19; TEMP 36.2; O2SAT 98
[2024-08-27 08:00] VITALS: BP 127/70; PULSE 75; RESP 20; TEMP 36.1; O2SAT 98
[2024-08-27] MEDS: BUSPIRONE HCL 10MG TABLET PO SCH (08:34)
[2024-08-27 12:00] VITALS: BP 127/68; PULSE 80; RESP 20; TEMP 36.3; O2SAT 97
== END 2024-08-27 14:25 | DRG 53 ==
LOC: ER 14:12 → EDBEDREQ 14:34 → 5WST 17:17 → EDBEDREQ 17:20 → 7WST 07-10 00:10 → 8EST 07-20 17:10
PROVIDERS: ADMIT Internal Medicine; ATTEND Internal Medicine
PROC: 4A00X4Z Measurement of Central Nervous Electrical Activity, External Approach (ICD-10-PCS; principal; 2024-07-11)
DX: G40.909 Epilepsy, unspecified, not intractable, without status epilepticus (principal); R47.01 Aphasia; F03.90 Unspecified dementia, unspecified severity, without behavioral disturbance, psychotic disturbance, mood disturbance, and anxiety; E66.9 Obesity, unspecified; E87.6 Hypokalemia; N39.0 Urinary tract infection, site not specified; D72.825 Bandemia; I10 Essential (primary) hypertension; F41.9 Anxiety disorder, unspecified; Z74.01 Bed confinement status; Z68.41 Body mass index [BMI] 40.0-44.9, adult
CPT/HCPCS: 36415; 70553; 80048; 81003; 83036; 83735; 84132; 84443; 85025; 87015; 87045; 87077; 87186; 87427; 87449; 95816; 97110; 97116; 97162; 97164; 97166; 97530; 97535; 99285; A4606; A6261; A9577; J0696; J1650; J1953; J2060; J3480; Q0162